=== PATIENT | female | born 1995 | race American Indian/Alaskan Native ===

== ENCOUNTER 2018-11-27 17:31 | Emergency (ER) | payer OTHER ==
[2018-11-27 17:55] VITALS: BP 115/69
[2018-11-27] MEDS ORDERED: ZOFRAN ODT PO ONE (17:55)
--- NOTE | 2018-11-27 17:55 | Emergency Department Report ---
Chief Complaint: Abdominal Pain Stated Complaint: STOMACH PAIN/WEAK/HEAD PAIN Time Seen by Provider: 11/27/18 17:52 - HPI History of Present Illness: pt presents with suprapubic abd pain that began today has lower back pain no fever (+) n/v/d no sick contacts no different foods, no water from a different source no vaginal discharge no urinary sx LNMP: october PMHx of endometrosis, ovarian cyst no daily meds non smoker non drinker no drug use MSE screening note: Focused history and physical exam performed. Due to findings the following was ordered: UA, urine preg, labs ED Disposition for MSE Condition: Stable Instructions: Abdominal Pain (ED)
[2018-11-27] MEDS ORDERED: ZOFRAN ODT ONE (17:58)
[2018-11-27 18:26] LABS: Bilirubin,Urine NEG (Negative); Blood,Urine NEG (Negative); Color,Urine Yellow (Yellow); Mucus,Urine 1+ /HPF; Protein,Urine <15 mg/dL mg/dL (Negative)
[2018-11-27 18:31] LABS: Mean Corpuscular HGB Conc 28 % (30-34); Platelet Count 118 K/mm3 (140-440); Red Blood Count 4.58 M/mm3 (3.65-5.03); Red Cell Distribution Width 19.8 % (13.2-15.2)
[2018-11-27 18:32] LABS: Hematocrit 31.7 % (30.3-42.9); Hemoglobin 8.8 gm/dl (10.1-14.3); Mean Corpuscular Volume 69 fl (79-97)
[2018-11-27 18:33] LABS: HCG Qualitative,Urine Negative (Negative)
[2018-11-27 18:42] LABS: Lymphocytes % (Auto) 6.8 % (13.4-35.0); Monocytes % (Auto) 5.2 % (0.0-7.3)
[2018-11-27 18:43] LABS: Basophils % (Auto) 0.4 % (0.0-1.8); Eosinophils # (Auto) 0.1 K/mm3 (0.0-0.4); Eosinophils % (Auto) 0.7 % (0.0-4.3); Lymphocytes # (Auto) 0.5 K/mm3 (1.2-5.4); Monocytes # (Auto) 0.4 K/mm3 (0.0-0.8)
[2018-11-27 18:52] LABS: Alanine Aminotransferase 6 units/L (7-56); Albumin 4.4 g/dL (3.9-5); BUN/Creatinine Ratio 30; Blood Urea Nitrogen 15 mg/dL (7-17); Calcium 9.2 mg/dL (8.4-10.2); Hemolysis Index 31
[2018-11-27] MEDS ORDERED: ZOFRAN IM ONE (21:42)
[2018-11-27] MEDS ORDERED: TORADOL IM ONE (21:42)
--- NOTE | 2018-11-27 21:48 | Emergency Department Report ---
ED N/V/D HPI - General Chief complaint: Abdominal Pain Stated complaint: STOMACH PAIN/WEAK/HEAD PAIN Time Seen by Provider: 11/27/18 17:52 Source: patient Mode of arrival: Ambulatory Limitations: No Limitations - History of Present Illness Initial comments: Patient is 23 years old female with no significant past medical history. Patient presented to the ER complaining of nausea vomiting and diarrhea for the last 3 days. Patient denied any fever or chills. Patient describes her pain as crampy with no radiation. Patient denied any vaginal bleeding or vaginal discharge. No chest pain or shortness of breath. MD complaint: nausea, vomiting, diarrhea, abdominal pain Description of Vomiting: watery Description of Diarrhea: water Location: diffuse Severity: mild Quality: cramping Context: sick contacts Associated Symptoms: denies other symptoms - Related Data Previous Rx's Medication Instructions Recorded Last Taken Type Ibuprofen [Motrin] 600 mg PO Q8H PRN #60 tablet 05/18/15 Unknown Rx Penicillin Vk [Veetids TAB] 500 mg PO QID #40 tablet 05/18/15 Unknown Rx traMADol [Ultram] 50 mg PO Q6HR PRN #14 tablet 05/18/15 Unknown Rx Allergies Allergy/AdvReac Type Severity Reaction Status Date / Time No Known Allergies Allergy Verified 05/18/15 07:44 ED Review of Systems ROS: Stated complaint: STOMACH PAIN/WEAK/HEAD PAIN Other details as noted in HPI Comment: All other systems reviewed and negative ENT: congestion Respiratory: denies: cough Gastrointestinal: abdominal pain, nausea, vomiting, diarrhea Musculoskeletal: denies: back pain Neurological: denies: headache, weakness, numbness, paresthesias, confusion, abnormal gait ED Past Medical Hx - Past Medical History Additional medical history: ovarian cyst, endometriosis - Surgical History Past Surgical History?: No - Social History Smoking Status: Never Smoker Substance Use Type: None - Medications Home Medications: Home Medications Medication Instructions Recorded Confirmed Last Taken Type Ibuprofen [Motrin] 600 mg PO Q8H PRN #60 tablet 05/18/15 Unknown Rx Penicillin Vk [Veetids TAB] 500 mg PO QID #40 tablet 05/18/15 Unknown Rx traMADol [Ultram] 50 mg PO Q6HR PRN #14 tablet 05/18/15 Unknown Rx ED Physical Exam - General Limitations: No Limitations General appearance: alert, in no apparent distress - Head Head exam: Present: atraumatic, normocephalic, normal inspection - Eye Eye exam: Present: normal appearance, PERRL - ENT ENT exam: Present: normal exam, normal orophraynx, mucous membranes moist - Neck Neck exam: Present: normal inspection, full ROM. Absent: tenderness, meningismus, lymphadenopathy, thyromegaly - Respiratory Respiratory exam: Present: normal lung sounds bilaterally - Cardiovascular Cardiovascular Exam: Present: regular rate, normal rhythm, normal heart sounds - GI/Abdominal GI/Abdominal exam: Present: soft, normal bowel sounds. Absent: distended, tenderness, guarding, rebound, rigid, organomegaly, mass, bruit, pulsatile mass, hernia - Extremities Exam Extremities exam: Present: normal inspection, full ROM, normal capillary refill - Back Exam Back exam: Present: normal inspection, full ROM. Absent: CVA tenderness (R), CVA tenderness (L), muscle spasm, paraspinal tenderness, vertebral tenderness - Neurological Exam Neurological exam: Present: alert, oriented X3, CN II-XII intact, normal gait, reflexes normal - Skin Skin exam: Present: warm, intact, normal color ED Course Vital Signs 11/27/18 11/27/18 17:53 21:33 Temperature 98.3 F Pulse Rate 84 Respiratory 18 18 Rate Blood Pressure 115/69 [Left] O2 Sat by Pulse 100 Oximetry ED Medical Decision Making - Lab Data Result diagrams: 11/27/18 18:07 11/27/18 18:07 - Medical Decision Making Patient is 23 years old female with no significant past medical history. Patient presented to the ER complaining of nausea vomiting and diarrhea for the last 3 days. Patient denied any fever or chills. Patient describes her pain as crampy with no radiation. Patient denied any vaginal bleeding or vaginal discharge. No chest pain or shortness of breath. Patient received Zofran and Toradol. Patient stated that she is feeling much better. Abdomen is soft and nontender. No clinical evidence of acute abdomen. No evidence of acute appendicitis. Patient symptoms is most likely related to a gastroenteritis given the vomiting and diarrhea. I advised the patient to follow up with her primary care physician in the next 2-3 days and to return to the ER if her symptoms are not improved. Critical care attestation.: If time is entered above; I have spent that time in minutes in the direct care of this critically ill patient, excluding procedure time. ED Disposition Clinical Impression: Abdominal pain, Gastroenteritis Disposition: DC-01 TO HOME OR SELFCARE Is pt being admited?: No Condition: Stable Instructions: Acute Nausea and Vomiting (ED), Abdominal Pain (ED) Referrals: RICARDO VILLAGOMEZ MD [Primary Care Provider] - 3-5 Days
== END 2018-11-27 22:48 | disposition home or self-care (01) ==
LOC: ED 17:31
DX: K52.9 Noninfective gastroenteritis and colitis, unspecified (principal)
CPT/HCPCS: 36415; 80053; 81001; 81025; 83690; 85025; 96372; 99283; J1885; J2405; Q0162